=== PATIENT | female | born 1970 | race American Indian/Alaskan Native ===

== ENCOUNTER 2024-07-29 08:23 | Day surgery (SDC) | payer BC ==
[2024-07-29 08:34] LABS: #Basophils 0.06 10x3/uL (0.0-0.2); %Basophils 0.9 % (0.0-1.0); %Eosinophils 3.2 % (0.0-10.0); %Lymphocytes 18.3 % (21.0-51.0); %Monocytes 6.9 % (0.0-10.0); %Neutrophils 70.4 % (42.0-75.0); Hematocrit 34.1 % (36.0-47.0); Hemoglobin 10.9 g/dL (12.0-16.0); Mean Corpuscular Hemoglobin 27.6 pg (27.0-31.0); Mean Corpuscular Volume 86.3 fL (78.0-98.0); Platelet Count 232 10x3/uL (130-400); RBC Distribution Width 14.1 % (11.5-14.5); Red Blood Cell (RBC) Count 3.95 mill/uL (4.20-5.40)
[2024-07-29 08:57] LABS: Prothrombin Time 13.1 sec (12.0-14.7)
[2024-07-29 09:31] VITALS: BP 137/95
[2024-07-29] MEDS ORDERED: fentaNYL 50 mcg/mL 1 mL Vial ONE (09:45)
[2024-07-29] MEDS ORDERED: Lidocaine 1% w/Epinephrine 1:100K 20 ML VIAL ONE (09:46)
[2024-07-29] MEDS ORDERED: Midazolam HCl 2 mg/2 ml Vial ONE (09:46)
[2024-07-29] MEDS ORDERED: Sodium Bicarbonate 2.5 MEQ/5 ML SDV ONE (09:46)
[2024-07-29] MEDS ORDERED: hydrALAZINE 20 MG/ML VIAL ONE (10:37)
[2024-07-29] MEDS ORDERED: FLU (Fluarix Triv) TS24-25(6MOS UP)/PF 45 MCG/0.5 ML Syringe IM ONE (12:00)
== END 2024-07-29 14:15 | disposition home or self-care (01) ==
LOC: CT 08:23
PROVIDERS: ATTEND Internal Medicine Nephrology
PROC: 0TB03ZX Excision of Right Kidney, Percutaneous Approach, Diagnostic (ICD-10-PCS; principal; 2024-07-29)
DX: I12.9 Hypertensive chronic kidney disease with stage 1 through stage 4 chronic kidney disease, or unspecified chronic kidney disease (principal); N18.4 Chronic kidney disease, stage 4 (severe); D63.1 Anemia in chronic kidney disease; E11.22 Type 2 diabetes mellitus with diabetic chronic kidney disease; M85.9 Disorder of bone density and structure, unspecified; R80.9 Proteinuria, unspecified; E78.5 Hyperlipidemia, unspecified; E03.9 Hypothyroidism, unspecified; F32.A Depression, unspecified; Z90.49 Acquired absence of other specified parts of digestive tract; Z79.899 Other long term (current) drug therapy; Z98.890 Other specified postprocedural states
CPT/HCPCS: 50200; 77012; 85025; 85610; 85730; 88329; 99152; 99153; J0360; J2250; J3010